=== PATIENT | female | born 1965 | race Caucasian/White ===

== ENCOUNTER → 2020-01-30 15:12 | Outpatient (BNVA) | payer OTHER, SELFPAY | PROVIDERS: PCP Internal Medicine; Referring Provider Internal Medicine; Visit Provider Physician Assistant | DX: Z76.89 Persons encountering health services in other specified circumstances (principal) ==

== ENCOUNTER 2020-06-05 20:06 | Emergency (ER) | payer OTHER, SELFPAY ==
--- NOTE | ~2020-06-05 | XR_ITS ---
EXAMINATION: CHEST 2 VIEWS CLINICAL INFORMATION: cp . COMPARISON: No recent pertinent prior studies are available for comparison. TECHNIQUE: PA and lateral views of the chest obtained. FINDINGS: The lungs are well expanded. No focal infiltrate, effusion, edema, or pneumothorax. Cardiac and mediastinal silhouettes are within normal limits for technique. No acute bony abnormality seen XR/XR chest 2V IMPRESSION: No evidence of acute disease
[2020-06-05 20:11] VITALS: BP 140/89; PULSE 96; RESP 18; TEMP 36.9; O2SAT 98; BMI 26.0
--- NOTE | 2020-06-05 20:15 | ECG_ITS ---
Test Reason : CHEST PAIN Blood Pressure : / mmHG Vent. Rate : 093 BPM Atrial Rate : 093 BPM P-R Int : 132 ms QRS Dur : 072 ms QT Int : 342 ms P-R-T Axes : 034 026 040 degrees QTc Int : 425 ms Normal sinus rhythm Normal ECG No previous ECGs available Referred By: Generic ED Physician Electronically Signed By:DAGO CARBALLO MD
--- NOTE | 2020-06-05 20:54 | ED.CHESTPAIN ---
HPI - Chest Pain General Chief Complaint: Chest Pain Stated Complaint: Chest pain Time Seen by Provider: 06/05/20 20:53 Source: patient and family (Spouse) Mode of arrival: ambulatory Limitations: no limitations History of Present Illness HPI narrative: 54-year-old female came in for evaluation of right-sided chest pain. This is a 54-year-old female came in with chest pain started about an hour ago while patient was resting, describes the pain as moderate in severity about 5/10, pain is worsening with deep breathing, nothing makes the pain better or worse, never had this pain in the past before, pain is constant, patient describes the pain as localized to the right chest wall and right upper back. No trauma no recent travel, no lower extremities pain or swelling. Related Data Home Medications Medication Instructions Recorded Confirmed calcium citrate malate-vit D3 1 tab PO DAILY 12/20/19 01/30/20 magnesium oxide 400 mg PO DAILY 12/20/19 01/30/20 tamoxifen 1 tab PO DAILY 12/20/19 01/30/20 Allergies Allergy/AdvReac Type Severity Reaction Status Date / Time No Known Allergies Allergy Verified 01/30/20 15:30 Review of Systems Review of Systems: All other systems are reviewed and are negative Constitutional: Reports as per HPI and Reports no additional constitutional complaints Eyes: Reports as per HPI and Reports no additional eye complaints Reports system reviewed and no additional complaints, except as documented Cardiovascular: Reports as per HPI and Reports no additional cardiovascular complaints Respiratory: Reports as per HPI and Reports no additional respiratory complaints Gastrointestinal: Reports as per HPI and Reports no additional gastrointestinal complaints Genitourinary: Reports no additional female genitourinary complaints Musculoskeletal: Reports no additional musculoskeletal complaints Skin/Breast: Reports system reviewed and no additional complaints, except as docu Psychiatric: Reports no additional psychiatric complaints Endocrine: Reports no additional endocrine complaints Hematologic/Lymphatic: Reports no additional hematologic/lymphatic complaints Allergic/Immunologic: Reports no additional allergic/immunologic complaints Reports system reviewed and no additional complaints, except as documented and Reports Abnormal speech present [facility] Past Medical History Medical History Breast CA Surgical History H/O tubal ligation Hx of appendectomy Social History Social History Smoking Status: Never smoker Advance Directives: No Advance Directives Information Provided: Yes Current occupational status: employed Current occupation: working from home Physical Exam Vital Signs: Vital Signs: Last Vital Signs Temp 98.4 F 06/05/20 20:11 Pulse 84 06/05/20 21:31 Resp 18 06/05/20 21:31 BP 119/77 06/05/20 21:31 Pulse Ox 97 06/05/20 21:31 Body Mass Index 26.0 Vital signs have been reviewed as appeared to be correct. Blood pressure normal. Heart rate normal. Respiration rate normal. Temperature normal. Oxygen saturation normal. Appearance: Alert. Oriented X3. No acute distress. Head: Normal external exam. Normocephalic. Atraumatic. No [place] signs noted. No raccoon eyes noted Eyes: PERRLA. EOMI. Conjunctiva and sclera normal. Eyelids normal. ENT: TM's Normal. Pharynx normal. Uvula midline. Moist mucous membranes. No trismus noted. No drooling noted. No muffled voice noted. Neck: Normal inspection. Neck supple. FROM. No adenopathy. Thyroid Normal. No meningeal signs. No neck mass noted. CVS: Normal heart rate and rhythm. Heart sound normal. No murmurs noted. Pulses normal throughout. Respiratory: No respiratory distress. Painless inspiration. Breath sounds normal. No wheezes/rales/rhonchi noted. Chest nontender. No accessory muscle usage noted or decreased air movement noted. Abdomen: Soft and nontender. Bowel sounds normal in all 4 quadrants. No distention noted. No organomegaly noted. No visible injury noted. Back: No CVA tenderness. Full range of motion noted. Skin: Skin warm and dry. Normal skin color. Normal skin turgor. No rashes/lesions/lacerations noted. Extremities: No lower extremity edema. Extremities exhibit normal range of motion. Extremities nontender. Neuro: Oriented X 3. No motor deficit. No sensory deficit. Reflexes normal. Course Course Course Narrative: 54-year-old female came in with right-sided chest pain that is pleuritic, patient had no risk for PE/DVT, patient also had HEART score of 1 with 2-troponin with 3 hours apart., patient reported improvement of the right-sided chest pain. Discharge the patient using NSAIDs p.r.n. pain. MDM - Chest Pain Lab Data Attestation: I reviewed the patient's lab results. Result diagrams: 06/05/20 21:18 06/05/20 21:18 Labs: Lab Results 06/05/20 06/05/20 06/05/20 Range/Units 21:18 21:18 21:18 WBC 5.2 (4.8-10.8) X10*3/uL RBC 4.10 L (4.20-5.50) X10*6/uL Hgb 12.8 (12.0-16.0) g/dl Hct 38.3 (37-47) % MCV 93.4 (80-98) fL MCH 31.2 (27.0-33.0) pg MCHC 33.4 (31.0-35.0) g/dl RDW 12.8 (11.0-16.0) % Plt Count 230 (160-400) X10*3/uL MPV 10.2 (9.4-12.3) fL Immature Gran % (Auto) 0.2 (0.0-0.4) % Neut % (Auto) 35.8 L (45-73) % Lymph % (Auto) 48.9 H (20-40) % Ritchie % (Auto) 11.4 H (2-11) % Eos % (Auto) 3.3 (0-4) % Baso % (Auto) 0.4 (0-2) % Lymph # (Auto) 2.5 (1.2-4.9) X10*3/uL Ritchie # (Auto) 0.6 (0.1-1.2) X10*3/uL Eos # (Auto) 0.2 (0.0-0.4) X10*3/uL Baso # (Auto) 0.0 (0.0-0.2) X10*3/uL Abs Immat Gran (auto) 0.01 (0.00-0.03) X10*3/uL Absolute Neuts (auto) 1.9 L (2.0-8.3) X10*3/uL Absolute Nucleated RBC 0.000 (0.0-0.012) X10*3/uL Nucleated RBC % (auto) 0.0 (0.0-0.2) /100WBC D-Dimer < 200 NG/ML Hold Blue Top SEE NOTE Sodium 140 (135-145) mmol/L Potassium 3.9 (3.3-5.1) mmol/L Chloride 103 (96-108) mmol/L Carbon Dioxide 30 H (22-29) mmol/L Anion Gap 11 L (12-20) BUN 14 (9-16) mg/dL Creatinine 0.81 (0.5-1.4) mg/dL Estim Creat Clear Calc 71.9 Estimated GFR > 60 Random Glucose 108 (60-115) mg/dL Calcium 9.3 (8.4-10.2) mg/dL Total Bilirubin 0.2 (0.0-1.0) mg/dL Direct Bilirubin < 0.2 (0.0-0.5) mg/dL AST 18 (5-31) U/L ALT 16 (0-31) U/L Alkaline Phosphatase 49 (39-117) U/L Troponin I High Sens (<3.5-17.0) ng/L B-Natriuretic Peptide (<100) pg/mL Total Protein 7.4 (6.5-8.0) g/dL Albumin 4.1 (3.5-5.0) g/dL Lipase 40 (8-78) U/L 06/05/20 06/06/20 Range/Units 21:18 00:18 WBC (4.8-10.8) X10*3/uL RBC (4.20-5.50) X10*6/uL Hgb (12.0-16.0) g/dl Hct (37-47) % MCV (80-98) fL MCH (27.0-33.0) pg MCHC (31.0-35.0) g/dl RDW (11.0-16.0) % Plt Count (160-400) X10*3/uL MPV (9.4-12.3) fL Immature Gran % (Auto) (0.0-0.4) % Neut % (Auto) (45-73) % Lymph % (Auto) (20-40) % Ritchie % (Auto) (2-11) % Eos % (Auto) (0-4) % Baso % (Auto) (0-2) % Lymph # (Auto) (1.2-4.9) X10*3/uL Ritchie # (Auto) (0.1-1.2) X10*3/uL Eos # (Auto) (0.0-0.4) X10*3/uL Baso # (Auto) (0.0-0.2) X10*3/uL Abs Immat Gran (auto) (0.00-0.03) X10*3/uL Absolute Neuts (auto) (2.0-8.3) X10*3/uL Absolute Nucleated RBC (0.0-0.012) X10*3/uL Nucleated RBC % (auto) (0.0-0.2) /100WBC D-Dimer NG/ML Hold Blue Top Sodium (135-145) mmol/L Potassium (3.3-5.1) mmol/L Chloride (96-108) mmol/L Carbon Dioxide (22-29) mmol/L Anion Gap (12-20) BUN (9-16) mg/dL Creatinine (0.5-1.4) mg/dL Estim Creat Clear Calc Estimated GFR Random Glucose (60-115) mg/dL Calcium (8.4-10.2) mg/dL Total Bilirubin (0.0-1.0) mg/dL Direct Bilirubin (0.0-0.5) mg/dL AST (5-31) U/L ALT (0-31) U/L Alkaline Phosphatase (39-117) U/L Troponin I High Sens < 3.5 < 3.5 (<3.5-17.0) ng/L B-Natriuretic Peptide < 10 (<100) pg/mL Total Protein (6.5-8.0) g/dL Albumin (3.5-5.0) g/dL Lipase (8-78) U/L Imaging Data Chest x-ray: Radiologist's impression: No evidence of acute disease. ECG Data ECG #1: Interpretation: Normal sinus rhythm at 93 beats per minutes, normal axis deviation, normal interval, no ST-T changes. Discharge Plan Discharge Clinical Impression: Chest pain Patient Disposition: Home, Self-Care Instructions: Chest Pain (ED) Prescriptions: No Action tamoxifen 20 mg tablet 1 tab PO DAILY RF: 0 calcium citrate malate-vit D3 500-200 mg-unit Tablet 1 tab PO DAILY RF: 0 magnesium oxide 400 mg magnesium Tablet 400 mg PO DAILY RF: 0 Referrals: Ayo Ragsdale MD [Primary Care Provider] - 2 days
[2020-06-05 21:23] LABS: MANUAL DIFF FLAG NO
[2020-06-05 21:26] LABS: Basophils Percent Auto 0.4 % (0-2); Eosinophils Absolute Auto 0.2 X10*3/uL (0.0-0.4); Eosinophils Percent Auto 3.3 % (0-4); Hematocrit 38.3 % (37-47); Hemoglobin 12.8 g/dl (12.0-16.0); Imm Gran Abs Auto 0.01 X10*3/uL (0.00-0.03); Imm Gran Pct Auto 0.2 % (0.0-0.4); Lymphocytes Absolute Auto 2.5 X10*3/uL (1.2-4.9); Lymphocytes Percent Auto 48.9 % (20-40); Mean Corpuscular HGB Conc 33.4 g/dl (31.0-35.0); Mean Corpuscular Hemoglobin 31.2 pg (27.0-33.0); Mean Corpuscular Volume 93.4 fL (80-98); Mean Platelet Volume 10.2 fL (9.4-12.3); Monocytes Absolute Auto 0.6 X10*3/uL (0.1-1.2); Monocytes Percent Auto 11.4 % (2-11); Neutrophils Absolute Auto 1.9 X10*3/uL (2.0-8.3); Neutrophils Percent Auto 35.8 % (45-73); Platelet Count 230 X10*3/uL (160-400); Red Cell Distribution Width 12.8 % (11.0-16.0); White Blood Count 5.2 X10*3/uL (4.8-10.8)
[2020-06-05 21:31] VITALS: BP 119/77; PULSE 83; PULSE 84; RESP 18; O2SAT 97
[2020-06-05 21:35] LABS: D Dimer < 200 NG/ML
[2020-06-05 21:48] LABS: Alanine Aminotransferase 16 U/L (0-31); Albumin Level 4.1 g/dL (3.5-5.0); Alkaline Phosphatase 49 U/L (39-117); Anion Gap 11 (12-20); Aspartate Amino Transferase 18 U/L (5-31); Bilirubin Direct < 0.2 mg/dL (0.0-0.5); Bilirubin Total 0.2 mg/dL (0.0-1.0); Blood Urea Nitrogen 14 mg/dL (9-16); Calcium 9.3 mg/dL (8.4-10.2); Carbon Dioxide 30 mmol/L (22-29); Chloride 103 mmol/L (96-108); Creatinine Clr Calc Pharmacy 71.9; Estimated Glomerular Filt Rate > 60; Glucose Random 108 mg/dL (60-115); Lipase 40 U/L (8-78); Potassium 3.9 mmol/L (3.3-5.1); Sodium 140 mmol/L (135-145); Total Protein 7.4 g/dL (6.5-8.0)
[2020-06-05] MEDS: Ibuprofen 800 MG TABLET PO (21:50)
[2020-06-05 21:51] LABS: B Type Natriuretic Peptide < 10 pg/mL (<100); Troponin-I High Sensitivity < 3.5 ng/L (<3.5-17.0)
[2020-06-06 00:48] LABS: Troponin-I High Sensitivity < 3.5 ng/L (<3.5-17.0)
== END 2020-06-06 01:20 | disposition home or self-care (01) ==
PROVIDERS: Emergency Provider Emergency Medicine; PCP Internal Medicine
DX: R07.9 Chest pain, unspecified (principal); Z85.3 Personal history of malignant neoplasm of breast
CPT/HCPCS: 36415; 71046; 80048; 80076; 83690; 83880; 84484; 85025; 85379; 93005; 99283; 99284

== ENCOUNTER 2020-11-20 05:59 | Outpatient (REF) | payer OTHER, SELFPAY ==
[2020-11-20 07:06] LABS: MANUAL DIFF FLAG NO
[2020-11-20 07:11] LABS: Basophils Percent Auto 0.5 % (0-2); Eosinophils Absolute Auto 0.1 X10*3/uL (0.0-0.4); Eosinophils Percent Auto 2.5 % (0-4); Hematocrit 39.1 % (37-47); Imm Gran Abs Auto 0.01 X10*3/uL (0.00-0.03); Imm Gran Pct Auto 0.2 % (0.0-0.4); Lymphocytes Percent Auto 46.4 % (20-40); Mean Corpuscular HGB Conc 33.2 g/dl (31.0-35.0); Mean Corpuscular Hemoglobin 31.4 pg (27.0-33.0); Mean Corpuscular Volume 94.4 fL (80-98); Mean Platelet Volume 10.9 fL (9.4-12.3); Monocytes Absolute Auto 0.5 X10*3/uL (0.1-1.2); Monocytes Percent Auto 11.6 % (2-11); Neutrophils Absolute Auto 1.7 X10*3/uL (2.0-8.3); Neutrophils Percent Auto 38.8 % (45-73); Platelet Count 221 X10*3/uL (160-400); Red Blood Count 4.14 X10*6/uL (4.20-5.50); White Blood Count 4.4 X10*3/uL (4.8-10.8)
[2020-11-20 07:54] LABS: Alanine Aminotransferase 17 U/L (0-31); Albumin Level 4.1 g/dL (3.5-5.0); Alkaline Phosphatase 50 U/L (39-117); Anion Gap 11 (12-20); Aspartate Amino Transferase 17 U/L (5-31); Bilirubin Total 0.4 mg/dL (0.0-1.0); Blood Urea Nitrogen 15 mg/dL (9-16); Calcium 9.1 mg/dL (8.4-10.2); Carbon Dioxide 27 mmol/L (22-29); Chloride 107 mmol/L (96-108); Cholesterol 181 mg/dL; Estimated Glomerular Filt Rate > 60; Glucose Random 107 mg/dL (60-115); HDL Cholesterol 54 mg/dL; LDL Cholesterol Calculated 106 mg/dl; Potassium 4.4 mmol/L (3.3-5.1); Sodium 141 mmol/L (135-145); Total Protein 7.3 g/dL (6.5-8.0); Triglycerides 109 mg/dL
[2020-11-20 08:07] LABS: TSH reflex Free T4 2.34 uIU/mL (0.32-4.0)
[2020-11-22 21:57] LABS: TS Negative Control Passed; TS Panel A 0; TS Panel B 0; TS Positive Control Passed; TSpotTB Negative (Negative)
== END 2020-11-20 06:00 | disposition home or self-care (01) ==
LOC: HO.LAB 05:59
PROVIDERS: PCP Internal Medicine; Visit Provider Internal Medicine
DX: Z00.00 Encounter for general adult medical examination without abnormal findings (principal); R53.83 Other fatigue
CPT/HCPCS: 36415; 80053; 80061; 84443; 85025; 86481

== ENCOUNTER 2021-01-15 12:58 | Outpatient (REF) | payer OTHER, SELFPAY ==
[2021-01-16 09:34] LABS: CT PCR NOT DETECTED (Not Detect.); NG PCR NOT DETECTED (Not Detect.)
[2021-01-16 09:46] LABS: BV Int Neg Control Negative (Negative); BV Int Pos Control Positive (Positive)
== END 2021-01-15 12:59 | disposition home or self-care (01) ==
LOC: HO.LAB 12:58
PROVIDERS: PCP Internal Medicine; Visit Provider Advanced Practice Midwife
DX: Z01.419 Encounter for gynecological examination (general) (routine) without abnormal findings (principal); Z20.2 Contact with and (suspected) exposure to infections with a predominantly sexual mode of transmission; D05.01 Lobular carcinoma in situ of right breast
CPT/HCPCS: 87480; 87491; 87510; 87591; 87660

== ENCOUNTER 2021-04-10 14:12 | Outpatient (REF) | payer OTHER, SELFPAY ==
--- NOTE | ~2021-04-10 | MM_ITS ---
EXAMINATION: MM SCREENING DIGITAL BREAST TOMOSYNTHESIS, BILATERAL CLINICAL INFORMATION: Screening. Asymptomatic. LCIS right breast The lifetime risk of breast cancer based on the Tyrer-Cuzick Model is 50%. Additional annual screening with breast MRI may be of benefit in women with a score of 20% or greater. COMPARISON: Mammography: November 27, 2019 and studies dating back to July 02, 2011 TECHNIQUE: Digital breast tomosynthesis is performed in both the craniocaudal and mediolateral oblique views along with computer-aided detection (CAD). Synthesized 2D images are generated from the tomosynthesis. FINDINGS: The breasts are heterogeneously dense, which may obscure small masses (ACR BI-RADS breast composition Category c). There are no significant masses, abnormal calcifications, or other abnormalities. MM/MM tomosynthesis screening BI IMPRESSION: There are no significant changes from prior study. ASSESSMENT: BI-RADS 1: Negative RECOMMENDATION: Routine annual mammography screening. This patient's information was entered into a reminder system with a target due date for their next mammogram.
== END 2021-04-10 14:13 | disposition home or self-care (01) ==
LOC: HO.MAMMO 14:12
PROVIDERS: Visit Provider Internal Medicine
DX: Z12.31 Encounter for screening mammogram for malignant neoplasm of breast (principal)
CPT/HCPCS: 77063; 77067

== ENCOUNTER 2021-11-29 08:59 | Outpatient (REF) | payer OTHER, SELFPAY ==
[2021-11-29 10:05] LABS: Hematocrit 41.6 % (37.0-47.0); Hemoglobin 14.1 g/dl (12.0-16.0); Mean Corpuscular HGB Conc 33.9 g/dl (31.0-35.0); Mean Corpuscular Hemoglobin 31.4 pg (27.0-33.0); Mean Corpuscular Volume 92.7 fL (80.0-98.0); Platelet Count 274 X10*3/uL (160-400); Red Blood Count 4.49 X10*6/uL (4.20-5.50); Red Cell Distribution Width 13.1 % (11.0-16.0)
[2021-11-29 10:32] LABS: Creatinine Urine 119.84 mg/dL
[2021-11-29 10:41] LABS: Alanine Aminotransferase 21 U/L (0-31); Albumin Level 4.4 g/dL (3.5-5.0); Alkaline Phosphatase 69 U/L (39-117); Anion Gap 18 (12-20); Aspartate Amino Transferase 19 U/L (5-31); Bilirubin Total 0.7 mg/dL (0.0-1.0); Blood Urea Nitrogen 20 mg/dL (9-16); Calcium 9.5 mg/dL (8.4-10.2); Carbon Dioxide 23 mmol/L (22-29); Chloride 104 mmol/L (96-108); Cholesterol 206 mg/dL; Estimated Glomerular Filt Rate > 60; Glucose Fasting 112 mg/dL (60-99); HDL Cholesterol 60 mg/dL; LDL Cholesterol Calculated 131 mg/dl; Potassium 4.6 mmol/L (3.3-5.1); Sodium 140 mmol/L (135-145); Triglycerides 77 mg/dL
== END 2021-11-29 09:00 | disposition home or self-care (01) ==
LOC: HO.LAB 08:59
PROVIDERS: PCP Internal Medicine; Visit Provider Internal Medicine
DX: Z00.00 Encounter for general adult medical examination without abnormal findings (principal); R05.9 Cough, unspecified
CPT/HCPCS: 36415; 80053; 80061; 82043; 85027

== ENCOUNTER 2021-12-01 08:43 | Outpatient (REF) | payer OTHER, SELFPAY ==
[2021-12-04 00:42] LABS: TS Negative Control Passed; TS Panel A 1; TS Panel B 0; TS Positive Control Passed; TSpotTB Negative (Negative)
== END 2021-12-01 08:44 | disposition home or self-care (01) ==
LOC: HO.LAB 08:43
PROVIDERS: PCP Internal Medicine; Visit Provider Internal Medicine
DX: Z11.1 Encounter for screening for respiratory tuberculosis (principal)
CPT/HCPCS: 36415; 86481

== ENCOUNTER 2022-01-29 14:06 | Outpatient (REF) | payer OTHER, SELFPAY ==
[2022-01-30 01:25] LABS: CT PCR NOT DETECTED (Not Detect.); NG PCR NOT DETECTED (Not Detect.)
[2022-01-30 13:04] LABS: BV Int Neg Control Negative (Negative); BV Int Pos Control Positive (Positive)
[2022-02-03 07:39] LABS: HPV mRNA E6/E7 rflx Not Detected (Not Detected)
== END 2022-01-29 14:07 | disposition home or self-care (01) ==
LOC: HO.LNP 14:06
PROVIDERS: Visit Provider Advanced Practice Midwife
DX: Z01.419 Encounter for gynecological examination (general) (routine) without abnormal findings (principal); Z11.51 Encounter for screening for human papillomavirus (HPV)
CPT/HCPCS: 87480; 87491; 87510; 87591; 87624; 87660; 88142

== ENCOUNTER 2022-04-16 14:20 | Outpatient (REF) | payer OTHER, SELFPAY ==
--- NOTE | ~2022-04-16 | MM_ITS ---
EXAMINATION: MM SCREENING DIGITAL BREAST TOMOSYNTHESIS, BILATERAL CLINICAL INFORMATION: Screening. Asymptomatic. LCIS right breast status post stereotactic biopsy 10/22/2016 and stereotactic lumpectomy with INTACT on 11/25/2016. COMPARISON: Mammography: 04/10/2021, 11/27/2019, 11/21/2018 TECHNIQUE: Digital breast tomosynthesis is performed in both the craniocaudal and mediolateral oblique views along with computer-aided detection (CAD). Synthesized 2D images are generated from the tomosynthesis. FINDINGS: There are scattered areas of fibroglandular density (ACR BI-RADS breast composition Category b). Parenchymal pattern is similar to prior studies. There is no developing density or architectural abnormality. The axilla and skin contours are unremarkable. No significant changes. There are post procedure changes again seen upper outer right breast with biopsy clip marker, small wire fragments from the INTACT biopsy device and some residual punctate calcifications. No significant changes. MM/MM tomosynthesis screening BI IMPRESSION: No mammographic evidence of malignancy. ASSESSMENT: BI-RADS 2: Benign RECOMMENDATION: Routine annual mammography screening. This patient's information was entered into a reminder system with a target due date for their next mammogram.
== END 2022-04-16 14:21 | disposition home or self-care (01) ==
LOC: HO.MAMMO 14:20
PROVIDERS: Visit Provider Internal Medicine
DX: Z12.31 Encounter for screening mammogram for malignant neoplasm of breast (principal)
CPT/HCPCS: 77063; 77067

== ENCOUNTER 2022-12-07 08:10 | Outpatient (REF) | payer OTHER, SELFPAY ==
[2022-12-07 09:27] LABS: Alanine Aminotransferase 15 U/L (0-31); Albumin Level 4.3 g/dL (3.5-5.0); Alkaline Phosphatase 65 U/L (39-117); Anion Gap 13 (12-20); Aspartate Amino Transferase 19 U/L (5-31); Bilirubin Total 0.6 mg/dL (0.0-1.0); Blood Urea Nitrogen 15 mg/dL (9-16); Calcium 9.8 mg/dL (8.4-10.2); Carbon Dioxide 25 mmol/L (22-29); Chloride 107 mmol/L (96-108); Cholesterol 187 mg/dL (<200); Estimated Glomerular Filt Rate > 60; Glucose Random 108 mg/dL (60-115); HDL Cholesterol 55 mg/dL (>40); LDL Cholesterol Calculated 110 mg/dL (<100); Potassium 4.1 mmol/L (3.3-5.1); Sodium 141 mmol/L (135-145); Triglycerides 114 mg/dL (<150)
[2022-12-10 09:43] LABS: TS Negative Control Passed; TS Panel A 1; TS Panel B 3; TS Positive Control Passed; TSpotTB Negative (Negative)
== END 2022-12-07 08:11 | disposition home or self-care (01) ==
LOC: HO.LAB 08:10
PROVIDERS: Visit Provider Internal Medicine
DX: Z00.01 Encounter for general adult medical examination with abnormal findings (principal); R53.83 Other fatigue; E78.5 Hyperlipidemia, unspecified
CPT/HCPCS: 36415; 80053; 80061; 85025; 86481; 86735; 86762; 86765

== ENCOUNTER 2023-03-25 14:57 | Outpatient (AMB) | payer OTHER, SELFPAY ==
--- NOTE | 2023-03-25 15:05 | A.OFFVIS_ITS ---
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 She is off the tamoxifen finally she says she could only tolerate being on it for 4 years. She is getting yearly mammograms at this point and is feeling good about that she and her go for walks most days at the mall. She has not worried about any thing at this particular time she was on a medication for high blood pressure but she did not like how it felt and her blood pressure was fine so she stopped it and she says she did have a conversation with her doctor about it PFSH Medical History Breast CA Surgical History H/O tubal ligation Hx of appendectomy Family History (Updated 03/25/23 @ 15:44 by Juana Gracia CNM) Other Lobular carcinoma in situ (LCIS) of right breast Social History Alcohol intake: current Alcohol intake frequency: a few times a month Patient Tobacco Use Status: Never used Tobacco Current occupational status: employed 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 Female Reproductive History Menstrual Age of Menarche: 14 Duration of menses: 3-5 days control method: permanent sterilization Total pregnancies: 4 Full term: 3 Date of last pap smear: 01/30/22 (negative) History of abnormal pap smear: No Physical Exam Vital Signs: Last Vital Signs BP 110/60 03/25/23 15:18 BMI result Body Mass Index 27.6 Const General: healthy appearing, comfortable, no acute distress, well developed and alert Nutritional Appearance: average body habitus Orientation/consciousness: patient oriented x3 Limitations: no limitations HEENT Head: Yes normocephalic Neck Neck: Yes normal visual inspection Chest Chest palpation & inspection: normal inspection of the chest Breast/axilla inspection: normal inspection of the breasts and normal inspection of the axillae Breast/axilla palpation: normal palpation of the breasts and normal palpation of the axillae Resp Effort & Inspection: normal respiratory effort GI Inspection: Yes normal to inspection, No Abdominal wall edema and No distended Palpation (GI): Soft to palpation and nontender Other: External exam within normal limits vagina pink and very moist cervix multiparous round pink smooth moist no abnormal discharge uterus small anteverted mobile nontender adnexa not enlarged good tone with Kegel. General: Yes bladder normal to palpation External Female Exam: normal external appearance and normal appearance of the urethra Speculum Exam - Vagina: normal appearance of the vagina, normal palpation and normal vaginal discharge Speculum Exam - Cervix: normal appearance of the cervix, normal palpation and nontender Bimanual exam- vagina & uterus: normal bimanual exam, normal palpation, uterine size normal, bladder normal to palpation, consistency normal, normal palpation, uterine mobility normal, uterine shape normal, No Cervical tenderness present, non-tender and no cervical motion tenderness Bimanual Exam- Adnexa, other: normal adnexae, no masses, normal and No adnexal tenderness Neuro General: patient oriented x3 Results Reviewed Results Reviewed: Name: Josephine Rodríguez Age/Sex: 56/F Attending: Juana Gracia CNM : 1965 Submitted by: Juana Gracia CNM Copies to: MR #: [id number] Status: [facility] REF Collected: 01/29/22 [facility] Received: 01/30/22 Interpretation Satisfactory for evaluation. Negative for intraepithelial lesion or malignancy. HPV mRNA E6/E7: NOT DETECTED This assay detects E6/E7 viral messenger RNA (mRNA) from 14 high-risk HPV types (16, 18, 31, 33, 35, 39, 45, 51, 52, 56, 58, 59, 66, 68) HPV testing performed by [facility], [place], [place]. See reference laboratory portion of the EMR for entire report. Clinical Information LMP: Unknown Previous PAP test: 02/12/17, WNL Material Received ThinPrep-Cervical Electronically Signed By: Vika Leonard 02/16/22 5714 The Pap Test is a screening procedure with the inherent possibility of both false negative and false positive results. Results should be interpreted in the context of historic and current clinical findings. Reliability of the Pap Test is enhanced by performing the test on a regular repetitive basis. Patient: Josephine Rodríguez Age/Sex: 56/F MR#: [id number] Page 1 of 1 Patient: Josephine Rodríguez MR#: [id number] : 1965 Acct:[id number] Age/Sex: 56 / F ADM Date: 04/16/22 Loc: HO.MAMMO Attending Dr: Ayo Ragsdale MD Ordering Physician: Ayo Ragsdale MD Results: 2Benign Findings Date of Service: 04/16/22 Follow Up: 1 Year From Original Mammogram Procedure(s): MM tomosynthesis screening BI Accession Number(s): [id number] cc: Ayo Ragsdale MD~ EXAMINATION: MM SCREENING DIGITAL BREAST TOMOSYNTHESIS, BILATERAL CLINICAL INFORMATION: Screening. Asymptomatic. LCIS right breast status post stereotactic biopsy 10/22/2016 and stereotactic lumpectomy with INTACT on 11/25/2016. COMPARISON: Mammography: 04/10/2021, 11/27/2019, 11/21/2018 TECHNIQUE: Digital breast tomosynthesis is performed in both the craniocaudal and mediolateral oblique views along with computer-aided detection (CAD). Synthesized 2D images are generated from the tomosynthesis. FINDINGS: There are scattered areas of fibroglandular density (ACR BI-RADS breast composition Category b). Parenchymal pattern is similar to prior studies. There is no developing density or architectural abnormality. The axilla and skin contours are unremarkable. No significant changes. There are post procedure changes again seen upper outer right breast with biopsy clip marker, small wire fragments from the INTACT biopsy device and some residual punctate calcifications. No significant changes. MM/MM tomosynthesis screening BI IMPRESSION: No mammographic evidence of malignancy. ASSESSMENT: BI-RADS 2: Benign RECOMMENDATION: Routine annual mammography screening. This patient's information was entered into a reminder system with a target due date for their next mammogram. Dictated By: Wes Navarro MD Signed By: <Electronically signed by Wes Navarro MD in OV> 04/20/22 1051 DD/ 1444 TD/TT: Poem Writer: IBANEZ Assessment & Plan Assessment & Plan (1) Cervical cancer screening: Comment: prevpap 2106. pap 01/30/22= negative with negative HPV. Code(s): Z12.4 - Encounter for screening for malignant neoplasm of cervix (2) Perimenopause: Code(s): N95.1 - Menopausal and female climacteric states (3) Women's annual routine gynecological examination: Code(s): Z01.419 - Encounter for gynecological examination (general) (routine) without abnormal findings (4) Lobular carcinoma in situ (LCIS) of right breast: Comment: Is currently being followed with yearly mammograms, off tamoxifen. Code(s): D05.01 - Lobular carcinoma in situ of right breast Plan -----Discussed in this visit the following: healthy balanced diet, regular and consistent exercise, getting recommended health screens, doing the best she can for her particular health concerns, kegel exercises, pap smear screening and followup recommendations, mammography screening and SBE, normal changes in cycles in her life stage--- . Declined any testing for STIs not due for a Pap this year gets her yearly mammograms and follow-up with primary care and other follow-up as necessary. She is doing very well and not concerned about any health issues this year and very happy about that she tries to have a healthy lifestyle and walks every day.. Coding Level of Care Code Est Pt Prev Care 40-64y(43376) Diagnoses Cervical cancer screening Z12.4 Perimenopause N95.1 Women's annual routine gynecological examination Z01.419 Lobular carcinoma in situ (LCIS) of right breast D05.01
[2023-03-25 15:18] VITALS: BP 110/60; BMI 27.6
== END 2023-03-25 15:49 | disposition home or self-care (01) ==
LOC: HO.HWSM 14:57
PROVIDERS: PCP Internal Medicine; Visit Provider Advanced Practice Midwife
DX: Z01.419 Encounter for gynecological examination (general) (routine) without abnormal findings (principal); Z12.4 Encounter for screening for malignant neoplasm of cervix; N95.1 Menopausal and female climacteric states; D05.01 Lobular carcinoma in situ of right breast
CPT/HCPCS: 99396

== ENCOUNTER → 2023-03-25 14:57 | Outpatient (BNVA) | payer OTHER, SELFPAY | PROVIDERS: PCP Internal Medicine; Visit Provider Advanced Practice Midwife ==

== ENCOUNTER → 2023-04-21 14:45 | Outpatient (BNV) | payer OTHER, SELFPAY | PROVIDERS: PCP Internal Medicine; Visit Provider Radiology Diagnostic Radiology | DX: Z12.31 Encounter for screening mammogram for malignant neoplasm of breast (principal) | CPT/HCPCS: 77063; 77067 ==

== ENCOUNTER 2023-04-21 14:47 | Outpatient (REF) | payer OTHER, SELFPAY ==
--- NOTE | ~2023-04-21 | MM_ITS ---
EXAMINATION: MM SCREENING DIGITAL BREAST TOMOSYNTHESIS, BILATERAL CLINICAL INFORMATION: Screening. Asymptomatic. Right LCIS status post stereotactic lumpectomy with INTACT procedure. COMPARISON: Mammography: This study is compared with prior exams dating back to 2017. TECHNIQUE: Digital breast tomosynthesis is performed in both the craniocaudal and mediolateral oblique views along with computer-aided detection (CAD). Synthesized 2D images are generated from the tomosynthesis. FINDINGS: There are scattered areas of fibroglandular density (ACR BI-RADS breast composition Category b). There are no significant masses, abnormal calcifications, or other abnormalities. The patient is status post and INTACT biopsy of the right upper outer quadrant with small residual wire fragments and a tissue marker from the biopsy in this location. MM/MM tomosynthesis screening BI IMPRESSION: No mammographic evidence of malignancy. ASSESSMENT: BI-RADS BI-RADS 2 - Benign Findings RECOMMENDATION: Routine annual mammography screening. 1 year F/U This examination should not preclude the clinical evaluation of a suspicious palpable abnormality. This patient's information was entered into a reminder system with a target due date for their next mammogram.
== END 2023-04-21 14:48 | disposition home or self-care (01) ==
LOC: HO.MAMMO 14:47
PROVIDERS: PCP Internal Medicine; Visit Provider Internal Medicine
DX: Z12.31 Encounter for screening mammogram for malignant neoplasm of breast (principal)
CPT/HCPCS: 77063; 77067

== ENCOUNTER 2023-09-26 14:16 | Emergency (ER) | payer OTHER, SELFPAY ==
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
[2023-09-26 14:28] VITALS: BP 113/68; BP 140/90; PULSE 106; PULSE 96; RESP 16; TEMP 37; O2SAT 96; BMI 28.2
[2023-09-26 14:33] VITALS: BP 113/68; PULSE 96; RESP 16; TEMP 37; O2SAT 96
[2023-09-26] MEDS: Acetaminophen 325 MG TABLET 975 MG PO (14:42)
[2023-09-26] MEDS: LORazepam 1 MG TABLET PO (14:43)
[2023-09-26] MEDS: Ondansetron ODT 4 MG TAB.RAPDIS TRANSLINGU (14:43)
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
[2023-09-26 16:14] VITALS: BP 128/84; PULSE 74; RESP 16; TEMP 36.5; O2SAT 100
[2023-09-26 18:22] VITALS: BP 135/78; PULSE 80; RESP 16; TEMP 36.9; O2SAT 98
[2023-09-26 18:44] VITALS: BP 135/78; PULSE 80; RESP 16; TEMP 36.9; O2SAT 98
== END 2023-09-26 18:45 | disposition home or self-care (01) ==
PROVIDERS: Emergency Provider Emergency Medicine
DX: S13.4XXA Sprain of ligaments of cervical spine, initial encounter (principal); S39.012A Strain of muscle, fascia and tendon of lower back, initial encounter; M79.10 Myalgia, unspecified site; R42 Dizziness and giddiness; R11.0 Nausea; M54.2 Cervicalgia; R07.89 Other chest pain; R51.9 Headache, unspecified; V43.52XA Car driver injured in collision with other type car in traffic accident, initial encounter; Y93.89 Activity, other specified; Y92.488 Other paved roadways as the place of occurrence of the external cause; Y99.8 Other external cause status; Z79.899 Other long term (current) drug therapy
CPT/HCPCS: 70450; 71045; 72100; 72125; 99284

== ENCOUNTER 2024-01-31 09:15 | Outpatient (REF) | payer OTHER, SELFPAY ==
[2024-01-31 09:39] LABS: MANUAL DIFF FLAG NO
[2024-01-31 10:47] LABS: Basophils Percent Auto 0.8 % (0-2); Eosinophils Absolute Auto 0.1 X10*3/uL (0.0-0.4); Eosinophils Percent Auto 1.9 % (0-4); Hemoglobin 14.2 g/dl (12.0-16.0); Imm Gran Abs Auto 0.01 X10*3/uL (0.00-0.03); Imm Gran Pct Auto 0.2 % (0.0-0.4); Lymphocytes Absolute Auto 2.3 X10*3/uL (1.2-4.9); Mean Corpuscular HGB Conc 33.8 g/dl (31.0-35.0); Mean Corpuscular Volume 94.6 fL (80.0-98.0); Mean Platelet Volume 10.7 fL (9.4-12.3); Monocytes Absolute Auto 0.4 X10*3/uL (0.1-1.2); Monocytes Percent Auto 8.3 % (2-11); Neutrophils Absolute Auto 2.3 x10*3/uL (2.0-8.3); Neutrophils Percent Auto 43.8 % (45-73); Platelet Count 269 X10*3/uL (160-400); Red Blood Count 4.44 X10*6/uL (4.20-5.50); Red Cell Distribution Width 12.7 % (11.0-16.0); White Blood Count 5.2 X10*3/uL (4.8-10.8)
[2024-01-31 11:29] LABS: Alanine Aminotransferase 20 U/L (0-31); Albumin Level 4.3 g/dL (3.5-5.0); Alkaline Phosphatase 68 U/L (39-117); Anion Gap 8 (12-20); Aspartate Amino Transferase 22 U/L (5-31); Bilirubin Total 0.3 mg/dL (0.0-1.0); Blood Urea Nitrogen 18 mg/dL (9-16); Calcium 9.6 mg/dL (8.4-10.2); Carbon Dioxide 29 mmol/L (22-29); Chloride 109 mmol/L (96-108); Cholesterol 194 mg/dL (<200); Estimated Glomerular Filt Rate > 60; Glucose Random 108 mg/dL (60-115); HDL Cholesterol 53 mg/dL (>40); LDL Cholesterol Calculated 113 mg/dL (<100); Potassium 4.3 mmol/L (3.3-5.1); Sodium 142 mmol/L (135-145); Total Protein 7.8 g/dL (6.5-8.0); Triglycerides 144 mg/dL (<150)
== END 2024-01-31 09:16 | disposition home or self-care (01) ==
LOC: HO.LAB 09:15
PROVIDERS: PCP Internal Medicine; Visit Provider Internal Medicine
DX: Z00.01 Encounter for general adult medical examination with abnormal findings (principal)
CPT/HCPCS: 36415; 80053; 80061; 85025

== ENCOUNTER 2024-04-26 14:42 | Outpatient (REF) | payer OTHER, SELFPAY | END 2024-04-26 14:43 | disposition home or self-care (01) | LOC: HO.MAMMO 14:42 | PROVIDERS: PCP Internal Medicine; Visit Provider Internal Medicine | DX: Z12.31 Encounter for screening mammogram for malignant neoplasm of breast (principal) | CPT/HCPCS: 77063; 77067 ==

== ENCOUNTER → 2024-04-26 15:00 | Outpatient (BNV) | payer OTHER, SELFPAY | PROVIDERS: PCP Internal Medicine; Visit Provider Internal Medicine | DX: Z12.31 Encounter for screening mammogram for malignant neoplasm of breast (principal) | CPT/HCPCS: 77063; 77067 ==

== ENCOUNTER → 2024-05-03 09:02 | Outpatient (BNVA) | payer OTHER, SELFPAY | PROVIDERS: PCP Internal Medicine; Visit Provider Advanced Practice Midwife ==

== ENCOUNTER 2024-06-07 09:10 | Outpatient (AMB) | payer OTHER, SELFPAY ==
--- NOTE | 2024-06-07 09:21 | MHC.OFFVIS ---
Vital Signs 06/07/24 09:25 Height 5 ft 3 in Weight 146 lb BMI 25.9 BP 126/78 Intake Visit Reasons: annual Waffle Machine Operator: Waffle Machine Operator Present (Daija) Accompanied by: Self / Same As Patient Allergies No Known Allergies Allergy (Verified 06/07/24 09:29) Is last menstrual period known: No Post menopausal: Yes Patient : No HPI Comments Details: She is a postmenopausal woman presenting for her annual enrollment management vice president examination. She is doing well with no enrollment management vice president concerns. Currently sexually active. Denies any vaginal dryness or irritation. STI testing offered; she declines. Attempting to eat a healthy diet with calcium and vitamin D and stays active with exercise. Last pap smear; 2021, negative. Last mammogram; 2024. Colonoscopy is UTD. History of LCIS right breast. No longer seeing Oncology. 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 Female Reproductive History Menstrual Age of Menarche: 14 Total pregnancies: 3 Full term: 3 Date of last pap smear: 01/29/22 (negative hpv, negative pap smear ) Date of Mammogram: 04/26/24 (bi rad 2) Review of Systems Const All systems reviewed & are unremarkable except as noted in HPI and below Reports as per HPI Eyes Reports no additional complaints ENT Reports no additional complaints Card Reports no additional complaints Resp Reports no additional complaints GI Reports as per HPI and Reports no additional complaints Reports as per HPI Musc Reports no additional complaints Skin/Breast Reports as per HPI Neuro Reports no additional complaints Psych Reports no additional complaints Endo Reports no additional complaints Tony/Lymph Reports no additional complaints Aller/Immun Reports no additional complaints Physical Exam Vital Signs: Last Vital Signs BP 126/78 06/07/24 09:25 BMI result Body Mass Index 25.9 Const General: cooperative, healthy appearing, no acute distress, well developed and alert Orientation/consciousness: patient oriented x3 HEENT Head: Yes normal to inspection Eyes General: appearance normal, both eyes and all related structures Neck Neck: Yes normal visual inspection Thyroid: Thyroid normal Chest Chest palpation & inspection: normal inspection of the chest and other (no puckering, dimpling, peau de orange, retraction, discharge, masses) Breast/axilla inspection: normal inspection of the breasts Breast/axilla palpation: normal palpation of the breasts Resp Effort & Inspection: normal respiratory effort GI Inspection: Yes normal to inspection Palpation (GI): Soft to palpation Rectal Exam - Female: deferred General: Yes bladder normal to palpation External Female Exam: normal external appearance and normal appearance of the urethra Speculum Exam - Vagina: normal appearance of the vagina, normal palpation and normal vaginal discharge Speculum Exam - Cervix: normal appearance of the cervix and normal palpation Bimanual exam- vagina & uterus: normal bimanual exam, normal palpation, uterine size normal, bladder normal to palpation, normal palpation and non-tender Bimanual Exam- Adnexa, other: no masses Skin General skin exam: no rashes or lesions noted Rashes: no rashes Neuro General: patient oriented x3 Cognition (Neuro): normal cognition Extrem General: Yes normal to inspection Psych Attitude: cooperative Thought process: Normal thought process present Assessment & Plan Assessment & Plan (1) Encounter for well woman exam with routine gynecological exam: Code(s): Z01.419 - Encounter for gynecological examination (general) (routine) without abnormal findings (2) Women's annual routine gynecological examination: Code(s): Z01.419 - Encounter for gynecological examination (general) (routine) without abnormal findings Category: Medical Plan Discussed: Current recommendations for pap smears per ASCCP guidelines. Breast awareness, periodic self breast exams and yearly mammogram. Maintain a healthy lifestyle, well balanced diet including Calcium 1,200 mg and Vitamin D 600 IU daily, and routine exercise. Replens moisturizers and lubricants if ever needed. Contact the office with any postmenopausal bleeding. Patient verbalizes understanding and agrees to the plan of care. She was given opportunity to ask questions and all questions were answered to the best of my ability. RTO in 1 year for annual enrollment management vice president exam. This note is constructed using voice recognition software. While every effort has been made to ensure accuracy, paper core machine operator errors may have been included. Coding Level of Care Code Est Pt Prev Care 40-64y(92310) Diagnoses Encounter for well woman exam with routine gynecological exam Z01.419 Women's annual routine gynecological examination Z01.419
[2024-06-07 09:25] VITALS: BP 126/78; BMI 25.9
== END 2024-06-07 09:48 | disposition home or self-care (01) ==
LOC: HO.HWS 09:10
PROVIDERS: PCP Internal Medicine; Visit Provider Advanced Practice Midwife
DX: Z01.419 Encounter for gynecological examination (general) (routine) without abnormal findings (principal)
CPT/HCPCS: 99396; 99459

== ENCOUNTER 2025-01-06 08:38 | Outpatient (REF) | payer OTHER, SELFPAY ==
--- OUTSIDE RECORDS SUMMARY | 2023-12-08 11:15 | XMS_ITS ---
Author Organization [facility] Address [address] [place], [place] [id number] Care Team Providers Care Side Piece Coverer Name Role Phone CARLOS POOL Primary Care Provider [facility], [facility] [phone] REASON FOR VISIT 41/ flu shot IMMUNIZATIONS Vaccine Route Administration Date Status Comme nts Influenza, Flublok IM Intramuscular 12/08/2023 Administere d Encounters Encounter Location Date Provider Diagnosis [address] [address] 12/08/2023 NURSING [facility] Encounter for immunization Z23 ASSESSMENTS Encounter Date Diagnosis Assessment Notes Treatment Notes Treatment Clinical Notes Section Notes 12/08/2023 Encounter for immunization (ICD-10 - Z23) VIS sheet provided to patient influenza vaccine administered patient counseled PLAN OF TREATMENT Treatment Notes Assessment Notes Encounter for immunization VIS sheet pro vided to patient influenza vaccine administered patient counseled Next Appt Details Follow Up: prn, Reason: Provider Name:CARLOS POOL , 03/26/2025 03:00:00 PM, [address] [place] [address], [phone], Provider Name:CARLOS Rosendo CORINE , 12/20/2025 02:45:00 PM, [address] [place] [address], [phone],
--- OUTSIDE RECORDS SUMMARY | 2023-12-13 07:00 | XMS_ITS ---
Author Organization [facility] Address [address] [place], [place] [id number] Care Team Providers Care Retail Advertising Sales Manager Name Role Phone CORINECAROLS Primary Care Provider [phone] REASON FOR VISIT 41/ covid + MEDICATIONS Medication SIG (Take, Route, Frequency, Duration) Notes Start Date End Date Status Paxlovid (300/100) 20 x 150 MG & 10 x 100MG as directed3 capsules Orally twice a day for 5 days 12/13/2023 Active Omeprazole 20 MG 1 capsule 1/2 to 1 h our before morning meal Orally as needed only Active Encounters Encounter Location Date Provider Diagnosis [address] [address] 12/13/2023 CALROS POOL COVID 079.89 ASSESSMENTS Encounter Date Diagnosis Assessment Notes Treatment Notes Treatment Clinical Notes Section Notes 12/13/2023 COVID (ICD9-CM - 079.89) 1. COVID: We will treat with Paxlovid. Dosing concerns and possible side effects were reviewed. Patient will isolate at home until afebrile and feeling improved x 24 hrss and then if feeling improved may leave the home wearing a mask for 5 days thereafter. Patient will call in the interim if any concerns arise PLAN OF TREATMENT Medication Medication Name Sig Start Date Stop Date Notes Paxlovid (300/100) 20 x 150 MG & 10 x 100MG as directed3 capsules Orally twice a day for 5 days 12/13/2023 Next Appt Details Provider Name:CARLOS POOL , 03/26/2025 03:00:00 PM, [address] [place], [phone], Provider Name:CARLOS POOL , 12/20/2025 02:45:00 PM, [address] [place], [phone], Progress Notes * Examination Category Sub-Category Detail Notes Category Not es General Examination Lungs: No visible respirator y distress General Appearance Ill-appearing Neuro alert and oriented x 3 Psych: affect normal History and Physical Notes * HPI (History of Present Illness) Category Sub-Category Detail Notes Category Not es General Patient started yesterday with a headache. Over the course of the day she developed a cough and increased fatigue. She has not had fever or chills. She is not short of breath or wheezing. Her developed COVID the day prior. She tested positive this morning. Patient requested this telemedicine visit for COVID discussion. The patient was in their home and I was in the office for this visit which lasted 12 minutes
--- OUTSIDE RECORDS SUMMARY | 2024-02-02 15:06 | XMS_ITS ---
Author Organization [facility] Address [address] [place], [place] [id number] Care Team Providers Care Aesthetician Name Role Phone CARLOS POOL Primary Care Provider REASON FOR VISIT (2)Labs Encounters Encounter Location Date Provider Diagnosis [address] [address] 02/02/2024 CARLOS POOL PLAN OF TREATMENT Next Appt Details Provider Name:CARLOS POOL , 03/26/2025 03:00:00 PM, [address] [place] [address], [phone], Provider Name:CARLOS POOL , 12/20/2025 02:45:00 PM, [address] [place] [address], [phone],
--- OUTSIDE RECORDS SUMMARY | 2024-06-07 10:30 | XMS_ITS ---
Author Organization [facility] Address [address], [place] [id number] Care Team Providers Care Casing Trimmer Name Role Phone CARLOS POOL Primary Care Provider ALLERGIES No Known Allergies REASON FOR VISIT 6mo F/U, covid screen negative MEDICATIONS Medication SIG (Take, Route, Fr equency, Duration) Notes Start Date End Date Status Omeprazole 20 MG 1 capsule 1/2 to 1 h our before morning meal Orally as needed only Active SOCIAL HISTORY Tobacco Use: Social History Observation Description Date Details (start date - stop date) Never Smoker NA - NA Sex Assigned At : Social History Observation Description Sex Assigned At Unknown Smoking Question Answer Notes Are you a: never smoker VITAL SIGNS Blood pressure systolic 116 mm Hg 06/08/19 25 Blood pressure diastolic 72 mm Hg 025 Height 63.0 in 06/07/2024 Weight 149.2 lbs 06/07/2024 BMI 26.43 kg/m2 06/07/2024 Encounters Encounter Location Date Provider Diagnosis [facility] [address] [place] [address] 06/07/2024 CARLOS POOL GERD without esophagitis K21.9 and Essential (primary) hypertension I10 ASSESSMENTS Encounter Date Diagnosis Assessment Notes Treatment Notes Treatment Clinical Notes Section Notes 06/07/2024 GERD without esophagitis (ICD-10 - K21.9) 1. Gastroesophageal reflux: Continue with as needed omeprazole. 2. Hypertension: Has been stable off medication. Continue lifestyle management 06/07/2024 Essential (primary) hypertension (ICD-10 - I10) 1. Gastroesophageal reflux: Continue with as needed omeprazole. 2. Hypertension: Has been stable off medication. Continue lifestyle management PLAN OF TREATMENT Medication Medication Name Sig Start Date Stop Date Notes Omeprazole 20 MG 1 capsule 1/2 to 1 h our before morning meal Orally as needed only Next Appt Details Provider Name:CARLOS POOL , 03/26/2025 03:00:00 PM, [address] [place] [address], [phone], Provider Name:CARLOS POOL , 12/20/2025 02:45:00 PM, [address] [place] [address], [phone], Progress Notes * Examination Category Sub-Category Detail Notes Category Not es General Examination Heart: RSR, normal S1S2 Lungs: clear to auscultatio n Extremities: no edema General Appearance no apparent distress , pleasant Psych: alert, oriented X 3 Other normal affect History and Physical Notes * HPI (History of Present Illness) Category Sub-Category Detail Notes Category Not es General patient present s for follow-up. reflux symptoms have improved and she is using omeprazole only on a as needed basis. Sleep has been better of late. She is generally feeling well
--- OUTSIDE RECORDS SUMMARY | 2024-11-20 04:39 | XMS_ITS ---
Author Organization [facility] Address [address], [place] [id number] Care Team Providers Care Open Claims Representative Name Role Phone CARLOS POOL Primary Care Provider REASON FOR VISIT Sore throat, Headache Encounters Encounter Location Date Provider Diagnosis [address] [address] 11/20/2024 CARLOS POOL PLAN OF TREATMENT Next Appt Details Provider Name:CARLOS POOL , 03/26/2025 03:00:00 PM, [address] [place] [address], [phone], Provider Name:CARLOS POLO , 12/20/2025 02:45:00 PM, [address] [place] [address], [phone],
--- OUTSIDE RECORDS SUMMARY | 2024-11-20 11:15 | XMS_ITS ---
Author Organization [facility] Address [address] [place], [place] [id number] Care Team Providers Care Bark Spudder Name Role Phone CARLOS POOL Primary Care Provider ALLERGIES No Known Allergies REASON FOR VISIT cold symptoms MEDICATIONS Medication SIG (Take, Route, Frequency, Duration) Notes Start Date End Date Status Doxycycline Hyclate 100 MG 1 tablet Oral ly twice a day for 10 day(s) 11/20/2024 Active Omeprazole 20 MG 1 capsule 1/2 [...] never smoker VITAL SIGNS Blood pressure systolic 100 mm Hg 11/21/19 25 Blood pressure diastolic 74 mm Hg 025 Height 63.0 in 11/20/2024 Weight 151.2 lbs 11/20/2024 BMI 26.78 kg/m2 11/20/2024 Encounters Encounter Location Date Provider Diagnosis [facility] [address] [place] [address] 11/20/2024 CARLOS POOL Acute non-recurrent frontal sinusitis J01.10 ASSESSMENTS Encounter Date Diagnosis Assessment Notes Treatment Notes Treatment Clinical Notes Section Notes 11/20/2024 Acute non-recurrent frontal sinusitis (ICD-10 - J01.10) 1. Sinusitis: Will cover with doxycycline. Will encourage fluids and irrigation. Patient will stay out of work for the next 2 days and will keep me apprised of her progress PLAN OF TREATMENT Medication Medication Name Sig Start Date Stop Date Notes Doxycycline Hyclate 100 MG 1 tablet Oral ly twice a day for 10 day(s) 11/20/2024 Next Appt Details Provider Name:CARLOS POOL , 03/26/2025 03:00:00 PM, [address] [place] [address], [phone], Provider Name:CARLOS POOL , 12/20/2025 02:45:00 PM, [address] [place] [address], [phone], Progress Notes * Examination Category Sub-Category Detail Notes Category Not es General Examination HEENT: NC/AT, EOMI,PERRL, and TM's WNL Nares with yellow mucus Neck: no lymphadenopathy Heart: RSR, normal S1S2 Lungs: clear to auscultatio n Extremities: no edema General Appearance no apparent distress , pleasant Oral cavity: pharnyx and tonsils with mild erythema Psych: alert, oriented X 3 Other normal affect History and Physical Notes * HPI (History of Present Illness) Category Sub-Category Detail Notes Category Not es General Patient not fee ling well for a week - has headache and sore throat. + chest congestion with cough. No fever. No wheezing or SOB. Some post nasal drip. Tried Theraflu with little benefit
--- OUTSIDE RECORDS SUMMARY | 2024-11-24 05:58 | XMS_ITS ---
Author Organization [facility] Address [address] [place], [place] [id number] Care Team Providers Care Formula Mixer Name Role Phone CARLOS OPOL Primary Care Provider [phone] REASON FOR VISIT cough worse Encounters Encounter Location Date Provider Diagnosis [address] [address] 11/24/2024 CARLOS POOL PLAN OF TREATMENT Next Appt Details Provider Name:CARLOS POOL , 03/26/2025 03:00:00 PM, [address] [place] [address], [phone], Provider Name:CARLOS POOL , 12/20/2025 02:45:00 PM, [address] [place] [address], [phone],
--- OUTSIDE RECORDS SUMMARY | 2024-11-24 09:45 | XMS_ITS ---
Author Organization [facility] Address [address] [place], [place] [id number] Care Team Providers Care Creative Services Designer Name Role Phone CARLOS POOL Primary Care Provider ALLERGIES No Known Allergies RESULTS Component Value Reference Range Notes XR Chest 2 views Reviewed date:11/28/2024 06:55:32 PM Interpretation: Performing Lab: Notes/Report: REASON FOR VISIT prolonged cough MEDICATIONS Medication SIG (Take, Route, Frequency, Duration) Notes Start Date End Date Status Omeprazole 20 MG 1 capsule 1/2 to 1 h our before morning meal Orally as needed only Active Doxycycline Hyclate 100 MG 1 tablet Oral ly twice a day for 10 day(s) 11/20/2024 Active Cefpodoxime Proxetil 200 MG 1 tablet wit h food Orally every 12 hrs for 7 day(s) 11/24/2024 Active guaiFENesin-Codeine 200-10 MG/5ML 5 mL as needed Orally every12 hrs for 10 days 11/24/2024 Active SOCIAL HISTORY Tobacco Use: Social History Observation Description Date Details (start date - stop date) Never Smoker NA - NA Sex Assigned At : Social History Observation Description Sex Assigned At Unknown Smoking Question Answer Notes Are you a: never smoker VITAL SIGNS Blood pressure systolic 104 mm Hg 11/25/19 25 Blood pressure diastolic 84 mm Hg 025 Height 63.0 in 11/24/2024 Weight 151.8 lbs 11/24/2024 BMI 26.89 kg/m2 11/24/2024 Encounters Encounter Location Date Provider Diagnosis [facility] [address] [place] [phone] 11/24/2024 CARLOS POOL Acute cough R05.1 ASSESSMENTS Encounter Date Diagnosis Assessment Notes Treatment Notes Treatment Clinical Notes Section Notes 11/24/2024 Acute cough (ICD-10 - R05.1) 1. Acute cough: Will check a chest x-ray given lack of improvement with therapy thus far. Her spouse has pneumonia presently. Will add cefpodoxime to her current medication along with Robitussin with codeine at nighttime to assist with sleep. Further recommendations following x-ray results and she will keep me apprised of her progress PLAN OF TREATMENT Medication Medication Name Sig Start Date Stop Date Notes Cefpodoxime Proxetil 200 MG 1 tablet wit h food Orally every 12 hrs for 7 day(s) 11/24/2024 guaiFENesin-Codeine 200-10 MG/5ML 5 mL as needed Orally every12 hrs for 10 days 11/24/2024 Next Appt Details Provider Name:CARLOS POOL , 03/26/2025 03:00:00 PM, [address] [place] [address], [phone], Provider Name:CARLOS POOL , 12/20/2025 02:45:00 PM, [address] [place] [address], [phone], Progress Notes * Examination Category Sub-Category Detail Notes Category Not es General Examination Heart: RSR, normal S1S2 Lungs: clear to auscultatio n Extremities: no edema General Appearance Ill-appearing, pleas ant Psych: alert, oriented X 3 Other normal affect History and Physical Notes * HPI (History of Present Illness) Category Sub-Category Detail Notes Category Not es General Patient present s with persistent cough. She does not feel doxycycline is had significant impact on her infection thus far. She is not sleeping due to persistent cough at nighttime. She is raising some phlegm which is sometimes white and sometimes yellow. She is not having fever or chills. She is fatigued. At times she feels like she might be wheezing.
--- OUTSIDE RECORDS SUMMARY | 2024-11-28 13:55 | XMS_ITS ---
Author Organization [facility] Address [address] [place], [place] [id number] Care Team Providers Care Sql Manager Name Role Phone CARLOS POOL Primary Care Provider REASON FOR VISIT Xray Encounters Encounter Location Date Provider Diagnosis [address] [address] 11/28/2024 CARLOS POOL PLAN OF TREATMENT Next Appt Details Provider Name:CARLOS POOL , 03/26/2025 03:00:00 PM, [address] [place] [address], [phone], Provider Name:CARLOS POOL , 12/20/2025 02:45:00 PM, [address] [place] [address], [phone],
--- OUTSIDE RECORDS SUMMARY | 2024-12-13 10:15 | XMS_ITS ---
Author Organization [facility] Address [address] [place], [place] [id number] Care Team Providers Care Director Of Patient Safety Name Role Phone CARLOS POOL Primary Care Provider ALLERGIES No Known Allergies RESULTS Component Value Reference Range Notes EKG Reviewed date:12/18/2024 09:16:23 AM Interpretation: Performing Lab: Notes/Report: ECGDiastolicBP ECGHr ECGPRInterval ECGPWaveAxis ECGQRSDuration ECGQrsWaveAxis ECGQTcInterval ECGQTInterval ECGSystolicBP ECGTWaveAxis RR_DiastolicBP RR_MaxRRInterval RR_MeanHR RR_MeanRRInterval RR_MinRRInterval RR_NumBeats RR_NumNormalBeats RR_SystolicBP REASON FOR VISIT CPX, Would like flu vacc today MEDICATIONS Medication SIG (Take, Route, Fr equency, Duration) Notes Start Date End Date Status Doxepin HCl 10 MG 1 tablet at bedtime Orally as directed Active Omeprazole 20 MG 1 capsule 1/2 to 1 h our before morning meal Orally as needed only Active IMMUNIZATIONS Vaccine Route Administration Date Status Comme nts Influenza, Flublok IM Intramuscular 12/13/2024 Administere d SOCIAL HISTORY Tobacco Use: Social History Observation Description Date Details (start date - stop date) Never Smoker NA - NA Sex Assigned At : Social History Observation Description Sex Assigned At Unknown Smoking Question Answer Notes Are you a: never smoker VITAL SIGNS Blood pressure systolic 132 mm Hg 12/14/19 25 Blood pressure diastolic 84 mm Hg 10/15/2 025 Height 63.0 in 12/13/2024 Weight 151.0 lbs 12/13/2024 BMI 26.75 kg/m2 12/13/2024 Encounters Encounter Location Date Provider Diagnosis [facility] [address] [place] [address] 12/13/2024 [facility] Encounter for genera l adult medical examination with abnormal findings Z00.01 ; Insomnia, unspecified type G47.00 ; GERD without esophagitis K21.9 ; Essential (primary) hypertension I10 and Encounter for immunization Z23 ASSESSMENTS Encounter Date Diagnosis Assessment Notes Treatment Notes Treatment Clinical Notes Section Notes 12/13/2024 Encounter for general adult medical examination with abnormal findings (ICD-10 - Z00.01) 1. Routine healthcare maintenance: She is up-to-date with [employer] and mammography. Colonoscopy is due in 2026. She will update fasting blood work. She had her flu shot today 2. Insomnia: She is using doxepin occasionally with good effect. 3. Gastroesophageal reflux: Stable with as needed omeprazole use 4. Hypertension: Used to be on medication and stopped when blood pressure improved. She is higher today and will return in 3 months and we will reconsider medication if similar 12/13/2024 Insomnia, unspecified type (ICD-10 - G47.00) 1. Routine healthcare maintenance: She is up-to-date with [employer] and mammography. Colonoscopy is due in 2026. She will update fasting blood work. She had her flu shot today 2. Insomnia: She is using doxepin occasionally with good effect. 3. Gastroesophageal reflux: Stable with as needed omeprazole use 4. Hypertension: Used to be on medication and stopped when blood pressure improved. She is higher today and will return in 3 months and we will reconsider medication if similar 12/13/2024 GERD without esophagitis (ICD-10 - K21.9) 1. Routine healthcare maintenance: She is up-to-date with [employer] and mammography. Colonoscopy is due in 2026. She will update fasting blood work. She had her flu shot today 2. Insomnia: She is using doxepin occasionally with good effect. 3. Gastroesophageal reflux: Stable with as needed omeprazole use 4. Hypertension: Used to be on medication and stopped when blood pressure improved. She is higher today and will return in 3 months and we will reconsider medication if similar 12/13/2024 Essential (primary) hypertension (ICD-10 - I10) 1. Routine healthcare maintenance: She is up-to-date with [employer] and mammography. Colonoscopy is due in 2026. She will update fasting blood work. She had her flu shot today 2. Insomnia: She is using doxepin occasionally with good effect. 3. Gastroesophageal reflux: Stable with as needed omeprazole use 4. Hypertension: Used to be on medication and stopped when blood pressure improved. She is higher today and will return in 3 months and we will reconsider medication if similar 12/13/2024 Encounter for immunization (ICD-10 - Z23) VIS sheet provided to patient influenza vaccine administered patient counseled 1. Routine healthcare maintenance: She is up-to-date with [employer] and mammography. Colonoscopy is due in 2026. She will update fasting blood work. She had her flu shot today 2. Insomnia: She is using doxepin occasionally with good effect. 3. Gastroesophageal reflux: Stable with as needed omeprazole use 4. Hypertension: Used to be on medication and stopped when blood pressure improved. She is higher today and will return in 3 months and we will reconsider medication if similar PLAN OF TREATMENT Medication Medication Name Sig Start Date Stop Date Notes Doxepin HCl 10 MG 1 tablet at bedtime Orally as directed Omeprazole 20 MG 1 capsule 1/2 to 1 h our before morning meal Orally as needed only Treatment Notes Assessment Notes Encounter for immunization VIS sheet pro vided to patient influenza vaccine administered patient counseled Future Test Test Name Order Date CBC With Differential/Platelet-[id number] Lipid Panel-[id number] 12/13/2024 Comp. Metabolic Panel [id number] 2024 Next Appt Details Follow Up: 3 Months. prn, Re ason: Provider Name:CARLOS CHILDERSFORD , 03/26/2025 03:00:00 PM, [address] [place] [address], [phone], Provider Name:CARLOS POOL , 12/20/2025 02:45:00 PM, [address] [place] [address], [phone], Progress Notes * Examination Category Sub-Category Detail Notes Category Not es General Examination HEENT: PERRLA, EOMI bilatera lly, nose clear Neck: supple, no lymphaden opathy, no thyromegaly Heart: RSR, normal S1S2 Lungs: clear to auscultatio n Abdomen: soft, non tender/non distended, no rebound tenderness, no guarding or rigidity Extremities: no edema General Appearance no apparent distress , pleasant Skin: normal, no rash Neuro alert and oriented x 3, gait normal Oral cavity: no lesions Peripheral pulses: Bilateral radial pre sent, Bilateral posterior tibial present, BilateralCarotids present No Bruits, Back: no CVA tenderness, s traight leg raise normal, , no spinal tenderness Lymphatics No nodes in neck Psych: oriented X 3, affect normal History and Physical Notes * HPI (History of Present Illness) Category Sub-Category Detail Notes Category Not es Depression Screening PHQ-2 (2015 Edition) Little interest or pleasure in doing things?: Not at all Feeling down, depressed, or hopeless?: N ot at all Total Score: 0
--- OUTSIDE RECORDS SUMMARY | 2025-01-06 08:42 | XMS_ITS | Patient Health Record ---
Author Organization [facility] Address [address] [place], [place] [id number] Care Team Providers Care Jackaroo Name Role Phone CARLOS POOL Primary Care Provider ALLERGIES No Known Allergies REASON FOR REFERRAL No Information MEDICATIONS Medication SIG (Take, Route, Fr equency, Duration) Notes Start Date End Date Status Doxepin HCl 10 MG 1 tablet at bedtime Orally as directed Active Omeprazole 20 MG 1 capsule 1/2 to 1 h our before morning meal Orally as needed only Active IMMUNIZATIONS Vaccine Route Administration Date Status Comme nts TDAP IM Intramuscular 09/10/2017 Administered Td (Tetanus Diphtheria) Unknown 02/15/2008 Administered Pfizer COVID-19,mRNA, LNP-S, PF, 30mcg/0.3mL dose Unknown 05/24/2020 Administered Pfizer COVID-19,mRNA, LNP-S, PF, 30mcg/0.3mL dose Unknown 06/15/2020 Administered Influenza, Flublok IM Intramuscular 12/08/2023 Administere d Influenza, Flublok IM Intramuscular 12/13/2024 Administere d SOCIAL HISTORY Tobacco Use: Social History Observation Description Date Details (start date - stop date) Never Smoker NA - NA Sex Assigned At : Social History Observation Description Sex Assigned At Unknown Smoking Question Answer Notes Are you a: never smoker PROBLEMS Problem Type ICD Code Onset Dates Problem Status W/U Status Risk SNOMED Code Notes Problem Essential (primary) hypertension (I10) Active confirmed [id number] Problem GERD without esophagitis (K21.9) Active confirmed [id number] Problem Insomnia, unspecified type (G47.00) Active confirmed [id number] VITAL SIGNS Blood pressure diastolic 84 mm Hg 12/13/2024 Height 63.0 in 12/13/2024 Blood pressure systolic 132 mm Hg 12/13/2024 Weight 151.0 lbs 12/13/2024 BMI 26.75 kg/m2 12/13/2024 Encounters Encounter Location Date Provider Diagnosis [address] [address] 02/02/[address] [address] 06/07/2024 [facility] GERD without esophagitis K21.9 and Essential (primary) hypertension I10 [address] [address] 11/20/[address] [address] 11/20/2024 [facility] Acute non-recurrent frontal sinusitis J01.[address] [address] 11/24/[address] [address] 11/24/2024 [facility] Acute cough R05.[address] [address] 11/28/[address] [address] 12/13/2024 [facility] Encounter for genera l adult medical [...] will keep me apprised of her progress 11/20/2024 Acute non-recurrent frontal sinusitis (ICD-10 - J01.10) 1. Sinusitis: Wi ll cover with doxycycline. Will encourage fluids and irrigation. Patient will stay out of work for the next 2 days and will keep me apprised of her progress 12/13/2024 Insomnia, unspecified type (ICD-10 - G47.00) 1. Routine healthcare maintenance: She is up-to-date with [employer] and mammography. Colonoscopy is due in 2026. [...] reconsider medication if similar 12/13/2024 Encounter for general adult medical examination with abnormal findings (ICD-10 - Z00.01) 1. Routine healthcare maintenance: She is up-to-date with [employer] and mammography. Colonoscopy is due in 2026. [...] and we will reconsider medication if similar 06/07/2024 GERD without esophagitis (ICD-10 - K21.9) 1. Gastroesophageal reflux: Continue with as needed omeprazole. 2. Hypertension: Has been stable off medication. Continue lifestyle management 06/07/2024 Essential (primary) hypertension (ICD-10 - I10) 1. Gastroesophageal reflux: Continue with as needed omeprazole. 2. Hypertension: Has been stable off medication. Continue lifestyle management 12/13/2024 GERD without esophagitis (ICD-10 - K21.9) 1. Routine healthcare maintenance: She is up-to-date with [employer] and mammography. Colonoscopy is due in 2026. [...] Routine healthcare maintenance: She is up-to-date with [employer] and mammography. Colonoscopy is due in 2026. [...] Routine healthcare maintenance: She is up-to-date with [employer] and mammography. Colonoscopy is due in 2026. [...] reconsider medication if similar PLAN OF TREATMENT Pending Test Test Name Order Date EKG 12/08/2023 Future Test Test Name Order Date QUANTIFERON 1 TUBE 12/01/2022 CBC With Differential/Platelet-[id number] Lipid Panel-[id number] 12/13/2024 Comp. Metabolic Panel [id number] 2024 Next Appt Details Provider Name:CARLOS POOL , 03/26/2025 03:00:00 PM, [address] [place] [address], [phone], Provider Name:CARLOS POOL , 12/20/2025 02:45:00 PM, [address] [place] [address], [phone], Insurance Providers Payer Name Payer Address Payer Phone Subscriber Number Group Number Insured Name Patient Relationship to Insured Coverage Start Date Coverage End Date [facility] [address] [place] [id number] [employer] AD[employer]ER Self - patient is the insured 3 MEDICAL (GENERAL) HISTORY Medical History History ICD Code Problems: Gastroesophageal r eflux disease, Added Date: 11/18/2014, Onset Date: 05/08/2013:Active Surgical History Surgery Date(Month/Year) Cancer, breast, LCIS Right b reast Sx_Procedure : lumpectomy/tamixifen 2017
[2025-01-06 09:17] LABS: MANUAL DIFF FLAG NO
[2025-01-06 10:39] LABS: Hematocrit 44.3 % (37.0-47.0); Hemoglobin 15.0 g/dl (12.0-16.0); Imm Gran Abs Auto 0.02 X10*3/uL (0.00-0.03); Imm Gran Pct Auto 0.4 % (0.0-0.4); Lymphocytes Absolute Auto 2.4 X10*3/uL (1.2-4.9); Mean Corpuscular HGB Conc 33.9 g/dl (31.0-35.0); Mean Corpuscular Hemoglobin 31.2 pg (27.0-33.0); Mean Corpuscular Volume 92.1 fL (80.0-98.0); NRBC Abs Auto 0.000 X10*3/uL (0.0-0.012); NRBC Pct Auto 0.0 /100WBC (0.0-0.2); Platelet Count 277 X10*3/uL (160-400); Red Blood Count 4.81 X10*6/uL (4.20-5.50); White Blood Count 4.8 X10*3/uL (4.8-10.8)
[2025-01-06 11:40] LABS: Alanine Aminotransferase 24 U/L (0-31); Albumin Level 4.7 g/dL (3.5-5.0); Alkaline Phosphatase 68 U/L (39-117); Anion Gap 13 (12-20); Aspartate Amino Transferase 27 U/L (5-31); Blood Urea Nitrogen 19 mg/dL (9-16); Calcium 9.4 mg/dL (8.4-10.2); Carbon Dioxide 26 mmol/L (22-29); Chloride 106 mmol/L (96-108); Cholesterol 208 mg/dL (<200); Estimated Glomerular Filt Rate > 60; HDL Cholesterol 60 mg/dL (>40); Potassium 4.2 mmol/L (3.3-5.1); Sodium 141 mmol/L (135-145); Total Protein 8.3 g/dL (6.5-8.0); Triglycerides 110 mg/dL (<150)
== END 2025-01-06 08:39 | disposition home or self-care (01) ==
LOC: HO.LAB 08:38
PROVIDERS: PCP Internal Medicine; Visit Provider Internal Medicine
DX: Z00.00 Encounter for general adult medical examination without abnormal findings (principal); Z13.6 Encounter for screening for cardiovascular disorders
CPT/HCPCS: 36415; 80053; 80061; 85025